=== PATIENT | male | born 1990 | race Caucasian/White ===

== ENCOUNTER 2020-06-15 20:01 | Emergency (ER) | payer OTHER ==
[2020-06-15] MEDS ORDERED: HYDROCODONE/APAP 10/325 TAB ONE (21:22)
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
[2020-06-15 23:47] VITALS: TEMP 99
[2020-06-15 23:50] VITALS: BP 110/80; O2SAT 99
--- NOTE | 2020-06-16 08:05 | RAD REPORT ---
EXAM DESCRIPTION: RAD - Knee Right 3 View - 06/15/2020 9:34 pm CLINICAL HISTORY: Right knee pain status post injury FINDINGS: No fracture or dislocation is seen. If the patient continues to have symptoms to suggest an occult fracture, ligamentous or meniscal inju ry then MRI would be recommended
== END 2020-06-15 23:32 | disposition home or self-care (01) ==
LOC: ER 20:01
DX: M23.91 Unspecified internal derangement of right knee (principal); F17.210 Nicotine dependence, cigarettes, uncomplicated
CPT/HCPCS: 99284

== ENCOUNTER 2021-05-21 03:59 | Emergency (ER) | payer OTHER, SELFPAY ==
--- OUTSIDE RECORDS SUMMARY | 2021-05-21 04:02 | XMS REPORT | Continuity of Care Document ---
:1990 Author Organization [facility] t Address [address] [place] [address] Care Team Providers Name Role Phone Pcp, Does Not Have A Primary Care Physician Nathan DE LA CRUZ Attending Clinician Unavailable Doctor Unassigned, Name Attending Clinician Unavailable BARBARA Attending Clinician Unavailable Nathan De La Cruz MD Attending Clinician Stephany Attending Clinician [phone] BARBARA Admitting Clinician Unavailable Payers Payer Name Policy Type Policy Number Effective Date Expiration Date S ource ALLEGIANCE BENEFIT [id number] PLAN MANAGEMENT Problems Condition Condition Condition Status Onset Resolution Last Treating Co mments Source Name Details Category Date Date Treatment Clinician Date No known No known Disease Unive rs active active ity of problems problems [facility] Allergies, Adverse Reactions, Alerts Allergy Allergy Status Severity Reaction(s) Onset Inactive Treating Comm ents Source Name Type Date Date Clinician NO KNOWN Drug Active Univers ALLERGIE Class ity of S [facility] Social History Social Habit Start Date Stop Date Quantity Comments Source Exposure to Not sure [facility] SARS-CoV-2 (event) Medica l Branch Sex Assigned At [birth year] [facility] 00:00:00 00:00:00 [facility] Smoking Status Start Date Stop Date Source Unknown if ever smoked [facility] Medications Ordered Filled Start Stop Current Ordering Indication Dosage Frequency Signature Comments Components Source Medication Medication Date Date Medication? Clinician (SIG) Name Name mupirocin 2 2020- Yes APPLY Unive rs % ointment 9-23 SMALL ity of 00:00: AMOUNT [place] [id number] TOPICALLY Medical TO THE Branch AFFECTED AREA THREE TIMES DAILY mupirocin 2 Yes APPLY Unive rs % ointment 02-26 SMALL ity of 00:00: AMOUNT [place] 00 TOPICALLY Medical TO THE Branch AFFECTED AREA THREE TIMES DAILY mupirocin 2 Yes APPLY Unive rs % ointment 02-26 SMALL ity of 00:00: AMOUNT [place] 00 TOPICALLY Medical TO THE Branch AFFECTED AREA THREE TIMES DAILY Vital Signs Vital Name Observation Time Observation Value Comments Source Systolic blood 2021-03-13 21:14:00 128 mm[Hg] Univer sity of pressure [facility] Diastolic blood 2021-03-13 21:14:00 79 mm[Hg] Unive rsity of [facility] Heart rate 2021-03-13 21:14:00 72 /min [facility] Respiratory rate 2021-03-13 21:14:00 18 /min [facility] Body height 2021-03-13 21:14:00 182.9 cm [facility] Body weight 2021-03-13 21:14:00 60.328 kg [facility] BMI 2021-03-13 21:14:00 18.04 kg/m2 [facility] Oxygen saturation in 2021-03-13 21:14:00 100 /min [facility] Arterial blood by [facility] Pulse oximetry [place] Procedures Procedure Date / Time Performed Performing Clinician [facility] e EXTERNAL PROVIDER 2021-05-18 06:01:00 Doctor Unassigned, No Univ [facility] RECORDS Name [facility] Encounters Start End Encounter Admission Attending Care Care Encounter Source Date/Time Date/Time Type Type Clinicians Facility Department ID 2021-06-12 2021-06-12 Outpatient Alyssa DE LA CRUZ [facility] [id number] Univers 09:00:00 09:00:00 ROZINA [id number] ity [facility] 2021-05-18 2021-05-18 Orders Doctor ARTEMIO [id number] Univers 00:00:00 00:00:00 Only Unassigned, COCO [id number] ity of [facility] [id number] [place] as [id number] [facility] 009 Branch 2021-05-16 2021-05-16 Outpatient [facility] [id number] [place] 04:11:00 04:11:00 [id number] 2021-04-11 2021-04-11 Outpatient [facility] [id number] [place] 03:31:00 03:31:00 [id number] [facility] 2021-03-23 2021-03-23 Telephone [facility] [id number] Univers 00:00:00 00:00:00 Rozina [employer] [id number] it y of [place] [id number] [place] as Joseluis?Blea [id number] [facility] [address] Office [facility] 2021-03-16 2021-03-16 Outpatient R [facility] [id number] Univers 12:15:00 12:15:00 [id number] [facility] 2021-03-16 2021-03-16 Outpatient R [facility] [id number] Univers 12:15:00 12:15:00 [facility] 2021-03-13 2021-03-13 Office [facility] [id number] Univers 14:47:54 17:40:32 Visit Rozina [facility] [id number] it y of [place] [id number] [place] as Joseluis?Blea [id number] [address] Office [facility] 2021-03-13 2021-03-13 Outpatient R [facility] [id number] Univers 15:00:00 15:00:00 ROZINA [facility] 2021-02-26 2021-02-26 Outpatient [facility] [id number] [place] 04:36:00 04:36:00 0923 [facility] 2021-02-26 2021-02-26 Outpatient Stephany, [facility] [id number] 00:00:00 00:00:00 Zuleika [id number] Results This patient has no known results.
[2021-05-21] MEDS ORDERED: KETOROLAC 30 MG/ML INJ ONE (04:38)
[2021-05-21 04:52] LABS: Absolute Lymphocytes (CBC) 1.9 K/uL (0.7-4.9); Basophils % 0.7 % (0-1.3); Hematocrit 39.9 % (39.6-49.0); MPV 8.9 fL (7.6-11.3); RBC Red Blood Cell Count 4.35 M/uL (4.33-5.43)
[2021-05-21 04:56] LABS: Protime INR 0.95
[2021-05-21 05:12] LABS: BUN Blood Urea Nitrogen 15 mg/dL (7-18); Bicarbonate 25 mmol/L (21-32); Glucose Level 103 mg/dL (74-106); Potassium 3.9 mmol/L (3.5-5.1); Sodium Level 140 mmol/L (136-145); Troponin (Emerg Dept Use Only) < 0.02 ng/mL (0.0-0.045)
--- NOTE | 2021-05-21 05:28 | ER ---
Nurse's Notes [facility] Name: Juan José Zee Age: 31 yrs Sex: Male : 1990 Arrival Date: 05/21/2021 Time: 04:01 Bed 19 Private MD: Diagnosis: Pleuritic chest pain Presentation: 05/21 04:17 Chief complaint: Patient states: he woke up approx 0320 with a sharp pain which started bb on the right then moved to the left side of his chest denies nausea or light-headedness but states he is SOB. The pain is constant and does not radiate. Coronavirus screen: At this time, the client does not indicate any symptoms associated with coronavirus-19. Ebola Screen: No symptoms or risks identified at this time. Initial Sepsis Screen: Does the patient meet any 2 criteria? No. Patient's initial sepsis screen is negative. Does the patient have a suspected source of infection? No. Patient's initial sepsis screen is negative. Risk Assessment: Do you want to hurt yourself or someone else? Patient reports no desire to harm self or others. Onset of symptoms was May 21, 2021. 04:17 Method Of Arrival: Ambulatory bb 04:17 Acuity: JASMINA 3 bb Historical: - Allergies: 04:19 No Known Allergies; bb - Home Meds: 04:19 None [Active]; bb - PMHx: 04:19 Hyperthyroidism; bb - PSHx: 04:19 None; bb - Immunization history:: Client reports having NOT received the Covid vaccine. - Social history:: Smoking status: Patient denies any tobacco usage or history of. Patient/guardian denies using alcohol, street drugs. Screenin:36 Abuse screen: Denies threats or abuse. Denies injuries from another. Nutritional sm5 screening: No deficits noted. Tuberculosis screening: No symptoms or risk factors identified. Fall Risk None identified. Assessment: 05:36 General: Appears in no apparent distress. Behavior is calm, cooperative. Pain: sm5 Complains of pain in chest Pain does not radiate. Pain began suddenly. Neuro: No deficits noted. Level of Consciousness is awake, alert, Oriented to person, place, time, situation. Cardiovascular: Reports chest pain, Capillary refill < 3 seconds Patient's skin is warm and dry. Rhythm is sinus rhythm. Respiratory: No deficits noted. Airway is patent Trachea midline Respiratory effort is even, unlabored. GI: No deficits noted. : No deficits noted. Vital Signs: 04:17 BP 114 / 73; Pulse 63; Resp 18 S; Temp 97.8(O); Pulse Ox 100% on R/A; Weight 61.23 kg bb (R); Height 6 ft. 0 in. (182.88 cm) (R); Pain 6/10; 05:38 BP 113 / 67; Pulse 52; Resp 16; Pulse Ox 100% on R/A; sm5 04:17 Body Mass Index 18.31 (61.23 kg, 182.88 cm) bb ED Course: 04:01 Patient arrived in ED. bp1 04:04 Karol Moses, RN is Primary Nurse. sm5 04:19 Triage completed. bb 04:19 Arm band placed on Patient placed in an exam room, on a stretcher, on rn cardiac cath, bb on pulse oximetry. EKG completed in triage. Results shown to MD. Family accompanied patient. 04:21 Christian Brambila MD is Attending Physician. sp3 04:37 Basic Metabolic Panel Sent. sm5 04:37 CBC with Diff Sent. sm5 04:37 PT-INR Sent. sm5 04:37 Troponin (emerg Dept Use Only) Sent. sm5 04:37 D-Dimer Sent. sm5 04:47 XRAY Chest (1 view) In Process Unspecified. EDMS 05:36 Patient has correct armband on for positive identification. Placed in gown. Bed in low sm5 position. Call light in reach. Side rails up X2. surveillance system monitor on. Pulse ox on. NIBP on. 05:36 No provider procedures requiring assistance completed. Inserted saline lock: 18 gauge sm5 in right antecubital area, using aseptic technique. Blood collected. 05:36 Patient maintains SpO2 saturation greater than 95% on room air. sm5 05:38 IV discontinued, intact, bleeding controlled, No redness/swelling at site. Pressure sm5 dressing applied. Administered Medications: 04:42 Drug: Ketorolac 30 mg Route: IVP; Site: left antecubital; sm5 05:38 Follow up: Response: Pain is decreased sm5 Outcome: 05:28 Discharge ordered by . sp3 05:37 Discharged to home ambulatory, with family. sm5 05:37 Condition: good 05:37 Discharge instructions given to patient, family, Instructed on discharge instructions, follow up and referral plans. medication usage, Demonstrated understanding of instructions, follow-up care, medications, Prescriptions given X 1. 05:38 Patient left the ED. sm5 Signatures: Dispatcher [employer] EDMS Pamela [place], RN RN Nayana Villanueva Setul, MD MD sp3 Karol Moses RN RN sm5
--- NOTE | 2021-05-21 05:28 | EDPHYS ---
Physician Documentation [facility] Name: Juan José Zee Age: 31 yrs Sex: Male : 1990 Arrival Date: 05/21/2021 Time: 04:01 Bed 19 Private MD: ED Physician Christian Brambila HPI: 05/21 04:41 This 31 yrs old Male presents to ER via Ambulatory with complaints of Chest Pain > 30 sp3 y/o. 04:41 31-year-old male with history of hyperthyroidism presents to the ED with chief sp3 complaint of sudden onset sharp substernal chest pain that started at 3:20 AM that awoke patient from sleep. Patient states that he has not had any prior history of this type of pain. Patient denies any associated symptoms including headache, neck pain, or shortness of breath. Patient also denies abdominal pain, epigastric pain, nausea, vomiting, diarrhea, fever, known COVID-19 contacts, sick contacts, trauma, back pain, fever, or any other ROS at this time. Pain is described as sharp and somewhat pulsating. It has somewhat resolved on its own but is still present.. Historical: - Allergies: 04:19 No Known Allergies; bb - Home Meds: 04:19 None [Active]; bb - PMHx: 04:19 Hyperthyroidism; bb - PSHx: 04:19 None; bb - Immunization history:: Client reports having NOT received the Covid vaccine. - Social history:: Smoking status: Patient denies any tobacco usage or history of. Patient/guardian denies using alcohol, street drugs. ROS: 04:42 Constitutional: Negative for fever, chills, and weight loss, Eyes: Negative for injury, sp3 pain, redness, and discharge, ENT: Negative for injury, pain, and discharge, Neck: Negative for injury, pain, and swelling, Respiratory: Negative for shortness of breath, cough, wheezing, and pleuritic chest pain, Abdomen/GI: Negative for abdominal pain, nausea, vomiting, diarrhea, and constipation, Back: Negative for injury and pain, MS/Extremity: Negative for injury and deformity, Skin: Negative for injury, rash, and discoloration, Neuro: Negative for headache, weakness, numbness, tingling, and seizure, Psych: Negative for depression, anxiety, suicide ideation, homicidal ideation, and hallucinations, Allergy/Immunology: Negative for hives, rash, and allergies. 04:42 All other systems are negative. Exam: 04:26 ECG was reviewed by the Attending Physician. EKG demonstrates normal sinus rhythm at 60 sp3 bpm with normal intervals, normal QRS, normal axis, normal ST/T-segment with mild T wave peaks in leads V3 and V4. 04:42 Constitutional: This is a well developed, well nourished patient who is awake, alert, sp3 and in no acute distress. Head/Face: Normocephalic, atraumatic. Eyes: Pupils equal round and reactive to light, extra-ocular motions intact. Lids and lashes normal. Conjunctiva and sclera are non-icteric and not injected. Cornea within normal limits. Periorbital areas with no swelling, redness, or edema. Neck: Trachea midline, no thyromegaly or masses palpated, and no cervical lymphadenopathy. Supple, full range of motion without nuchal rigidity, or vertebral point tenderness. No Meningismus. Chest/axilla: Normal chest wall appearance and motion. Nontender with no deformity. No lesions are appreciated. Cardiovascular: Regular rate and rhythm with a normal S1 and S2. No gallops, murmurs, or rubs. Normal PMI, no JVD. No pulse deficits. Respiratory: Lungs have equal breath sounds bilaterally, clear to auscultation and percussion. No rales, rhonchi or wheezes noted. No increased work of breathing, no retractions or nasal flaring. Abdomen/GI: Soft, non-tender, with normal bowel sounds. No distension or tympany. No guarding or rebound. No evidence of tenderness throughout. Back: No spinal tenderness. No costovertebral tenderness. Full range of motion. Skin: Warm, dry with normal turgor. Normal color with no rashes, no lesions, and no evidence of cellulitis. MS/ Extremity: Pulses equal, no cyanosis. Neurovascular intact. Full, normal range of motion. Neuro: Awake and alert, GCS 15, oriented to person, place, time, and situation. Cranial nerves II-XII grossly intact. Motor strength 5/5 in all extremities. Sensory grossly intact. Cerebellar exam normal. Normal gait. Vital Signs: 04:17 BP 114 / 73; Pulse 63; Resp 18 S; Temp 97.8(O); Pulse Ox 100% on R/A; Weight 61.23 kg bb (R); Height 6 ft. 0 in. (182.88 cm) (R); Pain 6/10; 05:38 BP 113 / 67; Pulse 52; Resp 16; Pulse Ox 100% on R/A; sm5 04:17 Body Mass Index 18.31 (61.23 kg, 182.88 cm) bb MDM: 04:22 Patient medically screened. sp3 04:43 Data reviewed: vital signs, nurses notes. ED course: 31-year-old male with sudden onset sp3 of pleuritic chest pain. Differential diagnosis includes spontaneous pneumothorax, pleurisy, acute coronary syndrome, pulmonary embolism, pneumonia, and functional chest pain. I am highly suspicious of sepsis, thoracic aneurysm, AAA, esophageal rupture, or any other critical illnesses. Will obtain EKG, chest x-ray, laboratory values as well as administer Toradol 30 mg IV. Patient is well-appearing and in no acute distress with normal vital signs including blood pressure of 114/73 heart rate in the low 60s. Pulse oxygenation is normal. Ultimate disposition will be based on patient course and data but will likely be discharged home with continued endocrinology and PCP follow-up. Patient and father who is in the room have been explained all of this and are okay with the plan and have no further questions at this time.. 05:15 ED course: Patient's chest x-ray is read by me and is documented as normal with no sp3 significant abnormalities. Aortic knob is normal heart is of normal size and there is no pneumothorax. Laboratory values are unremarkable including troponin, D-dimer, chemistries, and cell counts. Patient is improved with Toradol we will discharge patient home with pleuritic chest pain at this time.. 05/21 04:25 Order name: Basic Metabolic Panel; Complete Time: 05:14 sp3 05/21 04:25 Order name: CBC with Diff; Complete Time: 05:14 sp3 05/21 04:25 Order name: PT-INR; Complete Time: 05:14 sp3 05/21 04:25 Order name: Troponin (emerg Dept Use Only); Complete Time: 05:14 sp3 05/21 04:25 Order name: XRAY Chest (1 view) sp3 05/21 04:25 Order name: D-Dimer; Complete Time: 05:14 sp3 05/21 04:25 Order name: EKG; Complete Time: 04:26 sp3 05/21 04:25 Order name: Cardiac monitoring; Complete Time: 04:37 sp3 05/21 04:25 Order name: EKG - Nurse/Tech; Complete Time: 04:37 sp3 05/21 04:25 Order name: IV Saline Lock; Complete Time: 04:37 sp3 05/21 04:25 Order name: Labs collected and sent; Complete Time: 04:37 sp3 05/21 04:25 Order name: O2 Per Protocol; Complete Time: 04:37 sp3 05/21 04:25 Order name: O2 Sat Monitoring; Complete Time: 04:37 sp3 05/21 04:25 Order name: NPO; Complete Time: 04:55 sp3 Administered Medications: 04:42 Drug: Ketorolac 30 mg Route: IVP; Site: left antecubital; sm5 05:38 Follow up: Response: Pain is decreased sm5 Disposition Summary: 05/21/21 05:28 Discharge Ordered Location: Home sp3 Condition: Stable sp3 Diagnosis - Pleuritic chest pain sp3 Discharge Instructions: - Discharge Summary Sheet sp3 - Nonspecific Chest Pain, Adult sp3 Forms: - Medication Reconciliation Form sp3 - Thank You Letter sp3 - Antibiotic Education sp3 - Prescription Opioid Use sp3 Prescriptions: - Diclofenac Sodium 75 mg Oral Tablet Sustained Release - take 1 tablet by ORAL route 2 times per day; 30 tablet; Refills: 0, Product sp3 Selection Permitted Signatures: Dispatcher [employer] Pamela Khan RN RN bb Christian Brambila MD MD sp3 Karol Moses RN RN sm5
[2021-05-21 05:44] VITALS: TEMP 97.8; O2SAT 100
[2021-05-21 05:45] VITALS: BP 113/67
--- NOTE | 2021-05-21 07:30 | RAD REPORT ---
EXAM DESCRIPTION: Purvi Single View05/21/2021 4:48 am CLINICAL HISTORY: Chest pain COMPARISON: none FINDINGS: The lungs appear clear of acute infiltrate. The heart is normal size IMPRESSION: No acute abnormalities displayed
== END 2021-05-21 05:38 | disposition home or self-care (01) ==
LOC: ER 03:59
DX: R07.81 Pleurodynia (principal)
CPT/HCPCS: 36415; 71045; 80048; 84484; 85025; 85379; 85610; 93005; 96374; 99285